=== PATIENT | female | born 1950 | race Caucasian/White ===

== ENCOUNTER 2018-05-30 09:15 | Observation (INO) ==
[2018-05-30] MEDS ORDERED: Tetanus/Diphtheria Toxoid Adult Vaccine Inj 0.5 ML Vial IM ONE (10:28)
[2018-05-30 10:47] LABS: Baso % (Auto) 0.3 % (0.0-2.0); Eos # (Auto) 0.5 th/mm3 (0.0-0.4); Hematocrit 29.7 % (35.0-46.0); Hemoglobin 9.6 gm/dL (11.6-15.3); Lymph # (Auto) 0.7 th/mm3 (1.0-4.8); Lymph % (Auto) 7.5 % (9.0-44.0); Mean Corpuscular HGB Conc 32.2 % (32.0-36.0); Mean Corpuscular Hemoglobin 24.1 pg (27.0-34.0); Mean Corpuscular Volume 74.9 fL (80.0-100.0); Mean Platelet Volume 8.8 fL (7.0-11.0); Mono # (Auto) 0.9 th/mm3 (0.0-0.9); Mono % (Auto) 9.4 % (0.0-8.0); Neut % (Auto) 77.8 % (16.0-70.0); Platelet Count 439 th/mm3 (150-450); Red Blood Count 3.96 mil/mm3 (4.00-5.30); Red Cell Distribution Width 15.5 % (11.6-17.2); White Blood Count 9.1 th/mm3 (4.0-11.0)
[2018-05-30] MEDS ORDERED: Vancomycin Inj 1 GM/200 ML PIGGYBACK IV.SIG SCH (11:00)
[2018-05-30] MEDS ORDERED: Vancomycin Inj 1,000 MG in Sodium Chlor 0.9% Inj 250 ML IV.SIG SCH (11:00)
[2018-05-30 11:05] LABS: Potassium 3.4 meq/L (3.5-5.1)
[2018-05-30 11:07] LABS: Calcium 8.6 mg/dL (8.5-10.1)
[2018-05-30 11:08] LABS: Carbon Dioxide 25.7 meq/L (21.0-32.0)
[2018-05-30 11:10] LABS: Platelet Estimate Normal (Normal); Platelet Morphology Normal (Normal)
--- NOTE | 2018-05-30 11:30 | ED ---
HPI General Chief complaint: Skin/Abscess/Foreign Body Stated complaint: Cellulitis both legs/antibiotics not working Time Seen by Provider: 05/30/18 10:13 Source: patient Mode of arrival: ambulatory Limitations: no limitations History of Present Illness HPI narrative: Patient is a 67-year-old female with history of lupus, fibromyalgia, osteopenia as well as osteoarthritis, presents to the emergency room for evaluation of cellulitis. Patient reports that she cellulitis to her lower extremities b/l. She did go to an urgent care on Wednesday and was started on Keflex 500mg qid. Reports that her cellulitis is getting worse instead of better. She is experiencing chills. Reports that she often gets cellulitis and requires IV antibiotics. Tetanus is not up to date. Related Data Home Medications Medication Instructions Recorded Confirmed amitriptyline 40 mg PO DAILY 05/30/18 05/30/18 cephalexin [Keflex] 500 mg PO QID 05/30/18 05/30/18 cyclobenzaprine 10 mg PO DAILY 05/30/18 05/30/18 diclofenac sodium 75 mg PO BID 05/30/18 05/30/18 duloxetine [Cymbalta] 60 mg PO DAILY 05/30/18 05/30/18 gabapentin 300 mg PO TID 05/30/18 05/30/18 hydroxychloroquine [Plaquenil] 200 mg PO BID 05/30/18 05/30/18 sertraline 100 mg PO DAILY 05/30/18 05/30/18 Allergies Allergy/AdvReac Type Severity Reaction Status Date / Time No Known Allergies Allergy Verified 05/30/18 09:42 Review of Systems ROS: all other systems reviewed are negative [facility] Medical History Medical History Fibromyalgia (Acute) Lupus (Acute) Osteoarthritis (Acute) Osteopenia (Acute) Surgical History Surgical History History of back surgery (Acute) History of carpal tunnel surgery (Acute) History of foot surgery (Acute) Hx of cholecystectomy (Acute) Total knee replacement status (Acute) Social History Social History Substance History: No History of Abuse Second Hand Smoke Exposure: No Smoking Status: Never smoker How Often Do You Have a Drink Containing Alcohol: Never Recent Travel in [facility] within the Last 8 Weeks: No Recent Out of Country Travel within the Last 8 Weeks: No Immunization History Tetanus Immunization: Unsure Hx Influenza Vaccine This Season: Yes Exam Narrative Exam Narrative: GENERAL: NAD SKIN: Focused skin assessment warm/dry. Patient with circumferential cellulitis to bilateral extremities from knee to ankle, patient with appropriate pulses, no neurovascular compromise HEAD: Atraumatic. Normocephalic. EYES: Pupils equal and round. No scleral icterus. No injection or drainage. ENT: No nasal bleeding or discharge. Mucous membranes pink and moist. NECK: Trachea midline. No JVD. CARDIOVASCULAR: Regular rate and rhythm. No murmur appreciated. RESPIRATORY: No accessory muscle use. Clear to auscultation. Breath sounds equal bilaterally. GASTROINTESTINAL: Abdomen soft, non-tender, nondistended. Hepatic and splenic margins not palpable. MUSCULOSKELETAL: No obvious deformities. No clubbing. No cyanosis. No edema. NEUROLOGICAL: Awake and alert. No obvious cranial nerve deficits. Motor grossly within normal limits. Normal speech. PSYCHIATRIC: Appropriate mood and affect; insight and judgment normal. Course Initial Documented Vital Signs Temperature 98.9 F 05/30/18 09:48 Pulse Rate 86 05/30/18 09:48 Respiratory Rate 18 05/30/18 09:48 Blood Pressure 164/74 H 05/30/18 09:48 Pulse Oximetry 97 05/30/18 09:48 Last Documented Vital Signs Temperature 98.9 F 05/30/18 09:48 Pulse Rate 77 05/30/18 13:18 Respiratory Rate 20 05/30/18 13:18 Blood Pressure 147/88 H 05/30/18 13:18 Pulse Oximetry 98 05/30/18 13:18 Medical Decision Making MDM Narrative Medical decision making narrative: During the course of the patients emergency department visit, the patients history, examination, and differential diagnosis were reviewed with the patient. The patient was placed on a surveillance monitor with oximetry and frequent blood pressure monitoring. The patient had an IV access obtained and blood work sent for analysis. The patient was initially provided IV vancomycin as well as tetanus update. wbc 9.1, hemoglobin 9.6, hematocrit 29.7, platelets 439 Sodium 139, potassium 3.4, BUN 10, creatinine 0.7, glucose 73 Patient with failed outpatient treatment for cellulitis, discussed with patient that I could add Bactrim in addition to Keflex for treatment of her cellulitis, if she fails this, she can return to the ER for admission. Patient does not want to be discharged due to this pain in her legs and "oral antibiotics never help me." Call made for admission case reviewed with dr. garcía who accepts pt to service Medical Screen Exam Complete: Yes Emergency Medical Condition: Yes Differential Diagnosis Differential Diagnosis: Cellulitis, bacteremia Medical Records Medical records reviewed: Yes I reviewed the patient's medical records. Lab Data Lab results reviewed: Yes I reviewed the patient's lab results. Result diagrams: 05/30/18 10:30 05/30/18 10:30 Lab Results 05/30/18 05/30/18 05/30/18 Range/Units 10:30 10:30 10:30 CBC w Diff Slide review pending WBC 9.1 (4.0-11.0) th/mm3 RBC 3.96 L (4.00-5.30) mil/mm3 Hgb 9.6 L (11.6-15.3) gm/dL Hct 29.7 L (35.0-46.0) % MCV 74.9 L (80.0-100.0) fL MCH 24.1 L (27.0-34.0) pg MCHC 32.2 (32.0-36.0) % RDW 15.5 (11.6-17.2) % Plt Count 439 (150-450) th/mm3 MPV 8.8 (7.0-11.0) fL Neut % (Auto) 77.8 H (16.0-70.0) % Lymph % (Auto) 7.5 L (9.0-44.0) % Pettis % (Auto) 9.4 H (0.0-8.0) % Eos % (Auto) 5.0 H (0.0-4.0) % Baso % (Auto) 0.3 (0.0-2.0) % Neut # (Auto) 7.0 (1.8-7.7) th/mm3 Lymph # (Auto) 0.7 L (1.0-4.8) th/mm3 Pettis # (Auto) 0.9 (0.0-0.9) th/mm3 Eos # (Auto) 0.5 H (0.0-0.4) th/mm3 Baso # (Auto) 0.0 (0.0-0.2) th/mm3 WBC Differential . Diff Scan Auto diff confirmed Differential Comment . Platelet Estimate Normal (Normal) Platelet Morphology Normal (Normal) Sodium 139 (136-145) meq/L Potassium 3.4 L (3.5-5.1) meq/L Chloride 106 (98-107) meq/L Carbon Dioxide 25.7 (21.0-32.0) meq/L Anion Gap 7 (5-15) meq/L BUN 10 (7-18) mg/dL Creatinine 0.71 (0.50-1.00) mg/dL Estimated GFR 82 L (>89) mL/min Random Glucose 93 (74-106) mg/dL Calcium 8.6 (8.5-10.1) mg/dL Magnesium 2.3 (1.5-2.5) mg/dL Discharge Plan Discharge Disposition Patient Disposition: 30 Still Patient Discharge Condition Condition: Stable Discharge Details Diagnosis: Cellulitis Physicians Team ED Provider: Tiffanie Torrez Primary Care Provider: Primary Care Elmira Esquivel Rxs /Orders / Referrals /Forms Prescriptions: No Action cyclobenzaprine 10 mg Tablet 10 mg PO DAILY RF: 0 sertraline 100 mg Tablet 100 mg PO DAILY RF: 0 amitriptyline 10 mg Tablet 40 mg PO DAILY RF: 0 cephalexin [Keflex] 500 mg Capsule 500 mg PO QID RF: 0 gabapentin 300 mg Capsule 300 mg PO TID RF: 0 diclofenac sodium 75 mg Tablet,Delayed Release (Dr/Ec) 75 mg PO BID RF: 0 hydroxychloroquine [Plaquenil] 200 mg Tablet 200 mg PO BID RF: 0 duloxetine [Cymbalta] 60 mg Capsule,Delayed Release(Dr/Ec) 60 mg PO DAILY RF: 0 Status ED Status: With Doctor
[2018-05-30] MEDS ORDERED: Bisacodyl 10 MG Supp RECTAL PRN (12:36)
[2018-05-30] MEDS ORDERED: Acetaminophen 325 MG Tablet PO PRN (12:36)
[2018-05-30] MEDS: Gabapentin 300 MG Capsule PO SCH ×2 (13:15→17:57)
[2018-05-30] MEDS ORDERED: Amitriptyline 10 MG Tablet PO SCH (14:00)
[2018-05-30] MEDS ORDERED: Vancomycin Consult Pharmacy OTHER PRN (15:15)
--- NOTE | 2018-05-30 15:18 | P.HP ---
History of Present Illness Primary Care Physician: No Primary Care Physician Chief Complaint: Bilateral lower extremity cellulitis History of Present Illness: This is a 67-year-old female with a history of lupus, fibromyalgia, osteoarthritis and osteopenia. She presents to the emergency department because of bilateral lower extremity cellulitis. Started about 10 days ago when she was vacationing in [place]. She developed swelling and burning sensation and later noted erythema worse on the left lower extremity. Denies fever, chills, leg pain and shortness of breath. She was prescribed Keflex 3 days ago when she was evaluated at urgent care center and reports that she is not any better actually worse. She has history of cellulitis that required IV antibiotics in the past. By the time I saw the patient, patient already received IV vancomycin. All other systems reviewed negative. Review of Systems All other systems reviewed negative except as stated in HPI PMFSH - History History Provided By: Patient - Medical History Medical History: Medical History (Last Reviewed 05/30/18 @ 15:20 by Jay Liu MD) Fibromyalgia Lupus Osteoarthritis Osteopenia - Surgical History Surgical History: Surgical History (Last Reviewed 05/30/18 @ 15:20 by Jay Liu MD) History of back surgery History of carpal tunnel surgery History of foot surgery Hx of cholecystectomy Total knee replacement status - Family History Family History: Family History (Last Updated 05/30/18 @ 15:20 by Jay Liu MD) Other No pertinent family history - Tobacco History Second Hand Smoke Exposure: No Smoking Status: Never smoker - Alcohol History How Often Do You Have a Drink Containing Alcohol: Never - Substance Use History Substance History: No History of Abuse - Travel History Recent Travel in the [place] Within the Last 8 Weeks: No Recent Travel Out of the Country Within the Last 8 Weeks: No - Immunization History Tetanus Immunization: Unsure Hx Influenza Vaccine This Season: Yes Medications and Allergies Active Medications: Active Medications Acetaminophen (Tylenol) 650 mg PO Q4H PRN PRN Reason: Temp > 100.4 Al Hydroxide/Mg Hydroxide (Milk Of Magnesia Liq) 30 ml PO Q12H PRN PRN Reason: Mild Constipation Bisacodyl (Dulcolax Supp) 10 mg RECTAL DAILY PRN PRN Reason: SEVERE CONSITIPATION Cyclobenzaprine HCl (Flexeril) 10 mg PO HS [facility] Diclofenac Sodium (Voltaren Dr) 75 mg PO BID [facility] Last Admin: 05/30/18 13:56 Dose: 75 mg Duloxetine HCl (Cymbalta) 60 mg PO DAILY [facility] Gabapentin (Neurontin) 300 mg PO TID [facility] Last Admin: 05/30/18 13:15 Dose: 300 mg Hydroxychloroquine Sulfate (Plaquenil) 200 mg PO BID [facility] Vancomycin HCl 1,000 mg/ (Sodium Chloride) 250 mls @ 200 mls/hr IV.SIG CRM ADMINISTRATOR [facility] Last Infusion: 05/30/18 12:14 Dose: Infused Lactulose (Lactulose Liq) 30 ml PO DAILY PRN PRN Reason: SEVERE CONSITIPATION Ondansetron HCl (Zofran Inj) 4 mg IV.PUSH Q6H PRN PRN Reason: NAUSEA OR VOMITING Pharmacy Profile Note (Vancomycin Consult Pharmacy) 1 each OTHER UNSCH PRN PRN Reason: Pharmacy to dose Senna/Docusate Sodium (Joan-Colace) 1 tab PO BID [facility] Sennosides (Senokot) 17.2 mg PO Q12H PRN PRN Reason: Moderate Constipation Sertraline HCl (Zoloft) 100 mg PO DAILY [facility] Sodium Chloride (Ns Flush) 2 ml IV.FLUSH PRN PRN PRN Reason: FLUSH AFTER USING IV ACCESS Allergies Allergy/AdvReac Type Severity Reaction Status Date / Time No Known Allergies Allergy Verified 05/30/18 09:42 Home Medications Medication Instructions Recorded Confirmed Type cephalexin [Keflex] 500 mg PO QID 05/30/18 05/30/18 History cyclobenzaprine 10 mg PO HS 05/30/18 05/30/18 History diclofenac sodium 75 mg PO BID 05/30/18 05/30/18 History duloxetine [Cymbalta] 60 mg PO DAILY 05/30/18 05/30/18 History gabapentin 300 mg PO TID 05/30/18 05/30/18 History hydroxychloroquine [Plaquenil] 200 mg PO BID 05/30/18 05/30/18 History sertraline 100 mg PO DAILY 05/30/18 05/30/18 History Exam Vital signs: Vital Signs 05/30/18 09:48 05/30/18 11:04 05/30/18 13:18 Temperature 98.9 F Pulse Rate 86 78 77 Respiratory Rate 18 18 20 Blood Pressure 164/74 H 144/69 H 147/88 H Pulse Oximetry 97 95 98 05/30/18 14:48 Temperature Pulse Rate 65 Respiratory Rate 20 Blood Pressure 142/67 H Pulse Oximetry 99 Intake & Output 05/29/18 05/30/18 05/30/18 18:59 06:59 18:59 Intake Total 370 / 370 Balance 370 / 370 Weight 89.4 kg Intake: IV 250 / 250 Vancomycin Inj 1,000 MG In NS 250 / 250 Inj 250 ML @ 200 mls/hr IV.SIG CRM ADMINISTRATOR [facility] Rx#:[id number] Oral 120 / 120 Other: # Voids 1 Narrative: GENERAL: Well-developed, well-nourished in no distress SKIN: Warm and dry. She has cellulitis involving bilateral lower extremities with pitting edema, warmth, tenderness and erythema worse on the left lower extremity which is involving the entire left leg. On the right leg erythema is noted on the mid half HEAD: Atraumatic. Normocephalic. EYES: Pupils equal and round. No scleral icterus. No injection or drainage. ENT: No nasal bleeding or discharge. Mucous membranes pink and moist. NECK: Trachea midline. No JVD. CARDIOVASCULAR: Regular rate and rhythm. RESPIRATORY: No accessory muscle use. Clear to auscultation. Breath sounds equal bilaterally. GASTROINTESTINAL: Abdomen soft, non-tender, nondistended. MUSCULOSKELETAL: Extremities without clubbing, cyanosis. No obvious deformities. NEUROLOGICAL: Awake and alert. No obvious cranial nerve deficits. Motor grossly within normal limits. Five out of 5 muscle strength in the arms and legs. Normal speech. PSYCHIATRIC: Appropriate mood and affect; insight and judgment normal. Results - Labs CBC & Chem 7: 05/30/18 10:30 05/30/18 10:30 Labs: Laboratory Results - last 24 hr 05/30/18 05/30/18 05/30/18 10:30 10:30 10:30 CBC w Diff Slide review pending WBC 9.1 RBC 3.96 L Hgb 9.6 L Hct 29.7 L MCV 74.9 L MCH 24.1 L MCHC 32.2 RDW 15.5 Plt Count 439 MPV 8.8 Neut % (Auto) 77.8 H Lymph % (Auto) 7.5 L Benson % (Auto) 9.4 H Eos % (Auto) 5.0 H Baso % (Auto) 0.3 Neut # (Auto) 7.0 Lymph # (Auto) 0.7 L Benson # (Auto) 0.9 Eos # (Auto) 0.5 H Baso # (Auto) 0.0 WBC Differential . Diff Scan Auto diff confirmed Differential Comment . Platelet Estimate Normal Platelet Morphology Normal Sodium 139 Potassium 3.4 L Chloride 106 Carbon Dioxide 25.7 Anion Gap 7 BUN 10 Creatinine 0.71 Estimated GFR 82 L Random Glucose 93 Calcium 8.6 Magnesium 2.3 Caprini VTE Risk Assessment Caprini VTE Risk Assessment: Moderate/High Risk (score >= 2) Caprini Risk Assessment Model: Point Value = 1 Point Value = 2 Point Value = 3 Point Value = 5 Age 41-60 Minor surgery BMI > 25 kg/m2 Swollen legs Varicose veins or History of unexplained or recurrent spontaneous Oral contraceptives or hormone replacement Sepsis (< 1 month) Serious lung disease, including pneumonia (< 1 month) Abnormal pulmonary function Acute myocardial infarction Congestive heart failure (< 1 month) History of inflammatory bowel disease Medical patient at bed rest Age 61-74 Arthroscopic surgery Major open surgery (> 45 min) Laparoscopic surgery (> 45 min) Malignancy Confined to bed (> 72 hours) Immobilizing plaster cast Central venous access Age >= 75 History of VTE Family history of VTE Factor V Leiden Prothrombin [id number] Lupus anticoagulant Anticardiolipin antibodies Elevated serum homocysteine Heparin-induced thrombocytopenia Other congenital or acquired thrombophilia Stroke (< 1 month) Elective arthroplasty Hip, pelvis, or leg fracture Acute spinal cord injury (< 1 month) Prophylaxis Regimen: Total Risk Factor Score Risk Level Prophylaxis Regimen 0-1 Low Early ambulation 2 Moderate Order ONE of the following: *Sequential Compression Device (SCD) *Heparin 5000 units SQ BID 3-4 Higher Order ONE of the following medications: *Heparin 5000 units SQ TID *Enoxaparin/Lovenox 40 mg SQ daily (WT < 150 kg, CrCl > 30 mL/min) *Enoxaparin/Lovenox 30 mg SQ daily (WT < 150 kg, CrCl > 10-29 mL/min) *Enoxaparin/Lovenox 30 mg SQ BID (WT < 150 kg, CrCl > 30 mL/min) AND/OR *Sequential Compression Device (SCD) 5 or more Highest Order ONE of the following medications: *Heparin 5000 units SQ TID (Preferred with Epidurals) *Enoxaparin/Lovenox 40 mg SQ daily (WT < 150 kg, CrCl > 30 mL/min) *Enoxaparin/Lovenox 30 mg SQ daily (WT < 150 kg, CrCl > 10-29 mL/min) *Enoxaparin/Lovenox 30 mg SQ BID (WT < 150 kg, CrCl > 30 mL/min) AND *Sequential Compression Device (SCD) Assessment and Plan - Plan This is a 67-year-old female with a history of lupus, fibromyalgia, osteoarthritis and osteopenia. She presents with worsening bilateral lower extremity cellulitis despite on Keflex for the past 3 days. Bilateral lower extremity cellulitis worse on the left with failed outpatient therapy. Continue IV vancomycin. Edema control leg elevation and monitor for response. Hypokalemia. Patient received 30 mg p.o. potassium. Magnesium is 2.3. Repeat BMP and magnesium in the morning Microcytic anemia. Hemodynamically stable. No gross bleeding. Check Hemoccult and repeat CBC in the morning including iron studies DVT prophylaxis with early ambulation. Unable to start mechanical devices secondary to cellulitis. Start pharmacological prophylaxis if stable anemia and guaiac negative
[2018-05-30] MEDS: Senna/Docusate Sodium 8.6/50 MG Tablet PO SCH (21:02)
[2018-05-30] MEDS: Hydroxychloroquine 200 MG Tablet PO SCH (21:02)
[2018-05-30] MEDS ORDERED: Zolpidem Tartrate 5 MG Tablet PO ONE (22:00)
[2018-05-30] MEDS: Vancomycin Inj 1,500 MG in Sodium Chlor 0.9% Inj 500 ML IV.SIG SCH (23:26)
[2018-05-31 06:06] LABS: Baso % (Auto) 0.4 % (0.0-2.0); Eos # (Auto) 0.5 th/mm3 (0.0-0.4); Eos % (Auto) 8.2 % (0.0-4.0); Hematocrit 26.4 % (35.0-46.0); Hemoglobin 8.3 gm/dL (11.6-15.3); Lymph # (Auto) 0.8 th/mm3 (1.0-4.8); Lymph % (Auto) 13.7 % (9.0-44.0); Mean Corpuscular HGB Conc 31.5 % (32.0-36.0); Mean Corpuscular Hemoglobin 24.1 pg (27.0-34.0); Mean Corpuscular Volume 76.3 fL (80.0-100.0); Mean Platelet Volume 8.1 fL (7.0-11.0); Mono # (Auto) 0.9 th/mm3 (0.0-0.9); Mono % (Auto) 15.4 % (0.0-8.0); Neut % (Auto) 62.3 % (16.0-70.0); Platelet Count 347 th/mm3 (150-450); Red Blood Count 3.46 mil/mm3 (4.00-5.30); Red Cell Distribution Width 15.3 % (11.6-17.2); White Blood Count 6.2 th/mm3 (4.0-11.0)
[2018-05-31 06:18] LABS: Chloride 109 meq/L (98-107); Potassium 3.8 meq/L (3.5-5.1); Sodium 141 meq/L (136-145)
[2018-05-31 06:21] LABS: Anion Gap 6 meq/L (5-15); Calcium 8.2 mg/dL (8.5-10.1); Carbon Dioxide 26.2 meq/L (21.0-32.0); Glucose,Random 82 mg/dL (74-106)
[2018-05-31 06:22] LABS: Blood Urea Nitrogen 8 mg/dL (7-18)
[2018-05-31 06:25] LABS: Glomerular Filtration Rate Greater Than 89 mL/min (>89); Ovalocytes 1+; Platelet Estimate Normal (Normal); Platelet Morphology Normal (Normal)
--- NOTE | 2018-05-31 08:33 | US ---
EXAM DATE: 05/31/2018 8:22 AM EDT AGE/SEX: 67 years / Female INDICATIONS: Redness and swelling. CLINICAL DATA: This is the patient's initial encounter. Patient reports that signs and symptoms have been present for 1 day and indicates a pain score of 2/10. MEDICAL/SURGICAL HISTORY: . Fibromyalgia. Lupus. Osteoarthritis. Osteopenia. Carpal tunnel syn drome. Cholecystectomy. Back surgery. Foot surgery. Left total knee replacement. COMPARISON: No prior exams available for comparison. TECHNIQUE: Venous ultrasound of both lower extremities was performed from the inguinal ligament to t he proximal calf. Real-time, color Doppler and spectral tracing, compression and augmentation techni ques were used. FINDINGS: Right Leg: Normal compression of the deep venous system from the inguinal region to the proximal enmanuel f. No echogenic clot is seen. Normal response of the venous system to augmentation and respiration. Left Leg: Normal compression of the deep venous system from the inguinal region to the proximal calf . No echogenic clot is seen. Normal response of the venous system to augmentation and respiration. Other: None. CONCLUSION: 1. No evidence of DVT. Electronically signed by: Rey Santos MD 05/31/2018 8:31 AM EDT
--- NOTE | 2018-05-31 08:43 | P.PN ---
Subjective Interval history: Follow-up cellulitis. No new complaints. Doppler sonogram negative for DVT. Hemoglobin further dropped to 8.3 no gross bleeding. Colonoscopy unremarkable 5 months ago. Physical Exam Vital signs: Vital Signs 05/30/18 09:48 05/30/18 11:04 05/30/18 13:18 Temperature 98.9 F Pulse Rate 86 78 77 Respiratory Rate 18 18 20 Blood Pressure 164/74 H 144/69 H 147/88 H Pulse Oximetry 97 95 98 05/30/18 14:48 05/30/18 15:35 05/30/18 16:00 Temperature 98.0 F Pulse Rate 65 73 Respiratory Rate 20 20 Blood Pressure 142/67 H 143/77 H Pulse Oximetry 99 99 99 05/30/18 20:00 05/31/18 00:00 05/31/18 08:00 Temperature 98.8 F 98.1 F 97.1 F L Pulse Rate 75 66 67 Respiratory Rate 18 18 20 Blood Pressure 147/64 H 127/60 146/67 H Pulse Oximetry 98 18 L 99 Intake & Output 05/30/18 05/31/18 05/31/18 18:59 06:59 18:59 Intake Total 370 / 370 480 / 480 755 / 755 Balance 370 / 370 480 / 480 755 / 755 Weight 89.4 kg 91.5 kg Intake: IV 250 / 250 515 / 515 Vancomycin Inj 1,000 MG In NS 250 / 250 Inj 250 ML @ 200 mls/hr IV.SIG SLIMER [facility] Rx#:[id number] Vancomycin Inj 1,500 MG In NS 515 / 515 Inj 500 ML @ 250 mls/hr IV.SIG Q18H [facility] Rx#:[id number] Oral 120 / 120 480 / 480 240 / 240 Other: # Voids 1 3 Date of Last Bowel Movement 05/29/18 Weight On Admission 89.4 kg Narrative: GENERAL: Well-developed, well-nourished in no distress SKIN: Warm and dry. Improving cellulitis (receding erythema from borders) involving bilateral lower extremities with pitting edema, warmth, tenderness and erythema worse on the left lower extremity CARDIOVASCULAR: Regular rate and rhythm. RESPIRATORY: No accessory muscle use. Clear to auscultation. Breath sounds equal bilaterally. GASTROINTESTINAL: Abdomen soft, non-tender, nondistended. MUSCULOSKELETAL: Extremities without clubbing, cyanosis. No obvious deformities. NEUROLOGICAL: Awake and alert. No obvious cranial nerve deficits. Motor grossly within normal limits. Five out of 5 muscle strength in the arms and legs. Normal speech. PSYCHIATRIC: Appropriate mood and affect; insight and judgment normal. Results - Labs CBC & Chem 7: 05/31/18 05:40 05/31/18 05:40 Laboratory Results - last 24 hr 05/30/18 05/30/18 05/30/18 10:30 10:30 10:30 CBC w Diff Slide review pending WBC 9.1 RBC 3.96 L Hgb 9.6 L Hct 29.7 L MCV 74.9 L MCH 24.1 L MCHC 32.2 RDW 15.5 Plt Count 439 MPV 8.8 Neut % (Auto) 77.8 H Lymph % (Auto) 7.5 L Winston % (Auto) 9.4 H Eos % (Auto) 5.0 H Baso % (Auto) 0.3 Neut # (Auto) 7.0 Lymph # (Auto) 0.7 L Winston # (Auto) 0.9 Eos # (Auto) 0.5 H Baso # (Auto) 0.0 WBC Differential . Diff Scan Auto diff confirmed Differential Comment . Platelet Estimate Normal Platelet Morphology Normal Ovalocytes Sodium 139 Potassium 3.4 L Chloride 106 Carbon Dioxide 25.7 Anion Gap 7 BUN 10 Creatinine 0.71 Estimated GFR 82 L Random Glucose 93 Calcium 8.6 Magnesium 2.3 05/31/18 05/31/18 05:40 05:40 CBC w Diff Slide review pending WBC 6.2 RBC 3.46 L Hgb 8.3 L Hct 26.4 L MCV 76.3 L MCH 24.1 L MCHC 31.5 L RDW 15.3 Plt Count 347 MPV 8.1 Neut % (Auto) 62.3 Lymph % (Auto) 13.7 Winston % (Auto) 15.4 H Eos % (Auto) 8.2 H Baso % (Auto) 0.4 Neut # (Auto) 4.0 Lymph # (Auto) 0.8 L Winston # (Auto) 0.9 Eos # (Auto) 0.5 H Baso # (Auto) 0.0 WBC Differential . Diff Scan Auto diff confirmed Differential Comment . Platelet Estimate Normal Platelet Morphology Normal Ovalocytes 1+ H Sodium 141 Potassium 3.8 Chloride 109 H Carbon Dioxide 26.2 Anion Gap 6 BUN 8 Creatinine 0.60 Estimated GFR Greater than 89 Random Glucose 82 Calcium 8.2 L Magnesium - Imaging Impressions Venous Doppler Study 05/31/18 00:00 CONCLUSION: 1. No evidence of DVT. - Procedures none Assessment and Plan - Plan This is a 67-year-old female with a history of lupus, fibromyalgia, osteoarthritis and osteopenia. She presents with worsening bilateral lower extremity cellulitis despite on Keflex for the past 3 days. Bilateral lower extremity cellulitis worse on the left with failed outpatient therapy. Improving continue IV vancomycin. Edema control leg elevation and monitor for response. Hypokalemia. Improved Microcytic anemia. Hemodynamically stable. No gross bleeding. Check Hemoccult and repeat CBC in the morning including iron studies. Negative colonoscopy 5 months ago DVT prophylaxis with early ambulation. Unable to start mechanical devices secondary to cellulitis. Start pharmacological prophylaxis if stable anemia and guaiac negative Discharge Planning: Possible discharge in the morning
[2018-05-31] MEDS: Hydroxychloroquine 200 MG Tablet PO SCH ×2 (08:57→21:02)
[2018-05-31] MEDS: Gabapentin 300 MG Capsule PO SCH ×4 (08:57→17:25)
[2018-05-31] MEDS: Duloxetine 60 MG DR Capsule PO SCH (08:57)
[2018-05-31] MEDS: Sertraline 100 MG Tablet PO SCH (08:59)
[2018-05-31] MEDS: Senna/Docusate Sodium 8.6/50 MG Tablet PO SCH ×2 (09:00→21:03)
[2018-05-31] MEDS ORDERED: Acetaminophen 325 MG Tablet PO PRN (09:59)
[2018-05-31] MEDS ORDERED: Naloxone Inj 0.4 MG/ML Vial IV.PUSH PRN (09:59)
[2018-05-31 10:37] LABS: Iron 19 mcg/dL (50-170); Total Iron Binding Capacity 377 mcg/dL (250-450)
[2018-05-31 10:39] LABS: Ferritin 14 ng/mL (8-252)
[2018-05-31] MEDS: Vancomycin Inj 1,500 MG in Sodium Chlor 0.9% Inj 500 ML IV.SIG SCH (16:50)
[2018-05-31] MEDS: Amitriptyline 10 MG Tablet PO SCH (21:02)
[2018-06-01 07:29] LABS: Baso % (Auto) 0.4 % (0.0-2.0); Eos # (Auto) 0.5 th/mm3 (0.0-0.4); Eos % (Auto) 8.3 % (0.0-4.0); Hemoglobin 8.5 gm/dL (11.6-15.3); Lymph # (Auto) 0.9 th/mm3 (1.0-4.8); Lymph % (Auto) 15.6 % (9.0-44.0); Mean Corpuscular Hemoglobin 23.1 pg (27.0-34.0); Mean Corpuscular Volume 75.8 fL (80.0-100.0); Mean Platelet Volume 8.1 fL (7.0-11.0); Mono # (Auto) 0.8 th/mm3 (0.0-0.9); Mono % (Auto) 14.6 % (0.0-8.0); Neut # (Auto) 3.5 th/mm3 (1.8-7.7); Neut % (Auto) 61.1 % (16.0-70.0); Platelet Count 385 th/mm3 (150-450); Red Blood Count 3.69 mil/mm3 (4.00-5.30); White Blood Count 5.7 th/mm3 (4.0-11.0)
[2018-06-01 07:41] LABS: Mean Corpuscular HGB Conc 30.5 % (32.0-36.0)
[2018-06-01 08:11] LABS: Ovalocytes 1+; Platelet Estimate Normal (Normal); Platelet Morphology Normal (Normal); Rouleaux Present
[2018-06-01] MEDS: Hydroxychloroquine 200 MG Tablet PO SCH ×2 (08:41→20:26)
[2018-06-01] MEDS: Duloxetine 60 MG DR Capsule PO SCH (08:41)
[2018-06-01] MEDS: Sertraline 100 MG Tablet PO SCH (08:41)
[2018-06-01] MEDS: Gabapentin 300 MG Capsule PO SCH ×3 (08:41→17:13)
[2018-06-01] MEDS: Senna/Docusate Sodium 8.6/50 MG Tablet PO SCH ×2 (08:41→20:26)
[2018-06-01] MEDS: Vancomycin Inj 1,500 MG in Sodium Chlor 0.9% Inj 500 ML IV.SIG SCH (10:04)
[2018-06-01] MEDS ORDERED: Ferrous Sulfate 325 MG Tablet PO ONE (11:08)
--- NOTE | 2018-06-01 11:08 | P.PNIM ---
Subjective Interval history: Overall there has been improvement since time of admit. However patient still complains of redness and burning. She is apprehensive about discontinuing IV treatments given her history of poor response to p.o. therapies and recent failure of outpatient p.o. Keflex. Physical Exam Vital signs: Vital Signs 05/31/18 11:56 05/31/18 16:00 05/31/18 20:00 Temperature 98.1 F 96.3 F L 97.1 F L Pulse Rate 78 74 Respiratory Rate 20 16 Blood Pressure 149/76 H 125/58 L 178/72 H Pulse Oximetry 94 L 98 100 06/01/18 00:00 06/01/18 08:00 Temperature 96.2 F L 97.6 F Pulse Rate 71 74 Respiratory Rate 16 20 Blood Pressure 118/56 L 144/65 H Pulse Oximetry 93 L 100 Intake & Output 05/31/18 06/01/18 06/01/18 18:59 06:59 18:59 Intake Total 755 / 755 715 / 715 240 / 240 Output Total 200 / 200 Balance 755 / 755 715 / 715 40 / 40 Weight 91.5 kg Intake: IV 515 / 515 515 / 515 Vancomycin Inj 1,500 MG In NS 515 / 515 515 / 515 Inj 500 ML @ 250 mls/hr IV.SIG Q18H JEF Rx#:[id number] Oral 240 / 240 200 / 200 240 / 240 Output: Urine 200 / 200 Narrative: GENERAL: NAD, A&Ox3 HEAD: Normocephalic. NECK: Supple, trachea midline. No lymphadenopathy. EYES: No scleral icterus. No injection or drainage. CARDIOVASCULAR: Regular rate and rhythm without murmurs, gallops, or rubs. RESPIRATORY: Breath sounds equal bilaterally. No accessory muscle use. GASTROINTESTINAL: Abdomen soft, non-tender, nondistended. MUSCULOSKELETAL: No cyanosis, or edema. SKIN: Warm and dry. Improving erythema and induration at bilateral lower extremities, left larger than right. NEURO: No focal neurological deficits. Results - Labs CBC & Chem 7: 06/01/18 07:10 05/31/18 05:40 Laboratory Results - last 24 hr 06/01/18 07:10 CBC w Diff Slide review pending WBC 5.7 RBC 3.69 L Hgb 8.5 L Hct 28.0 L MCV 75.8 L MCH 23.1 L MCHC 30.5 L RDW 15.0 Plt Count 385 MPV 8.1 Neut % (Auto) 61.1 Lymph % (Auto) 15.6 [place] % (Auto) 14.6 H Eos % (Auto) 8.3 H Baso % (Auto) 0.4 Neut # (Auto) 3.5 Lymph # (Auto) 0.9 L [place] # (Auto) 0.8 Eos # (Auto) 0.5 H Baso # (Auto) 0.0 WBC Differential . Diff Scan Auto diff confirmed Differential Comment . Platelet Estimate Normal Platelet Morphology Normal Ovalocytes 1+ H Rouleaux Present H Microbiology 05/30/18 10:30 Blood - Peripheral Aerobic Blood Culture - Preliminary No growth in 2 days 05/30/18 10:30 Blood - Peripheral Anaerobic Blood Culture - Preliminary No growth in 2 days 05/30/18 10:40 Blood - Peripheral Aerobic Blood Culture - Preliminary No growth in 2 days 05/30/18 10:40 Blood - Peripheral Anaerobic Blood Culture - Preliminary No growth in 2 days - Procedures none Assessment and Plan - Plan This is a 67-year-old female with a history of lupus, fibromyalgia, osteoarthritis and osteopenia. Admitted secondary to bilateral lower extremity cellulitis with outpatient treatment failure on Keflex. Bilateral lower extremity cellulitis Outpatient treatment failure Patient failed Keflex Improving on IV vancomycin. Transition to p.o. clindamycin and p.o. Bactrim Monitor for continuation of improvement Hypokalemia. Improved Monitor for recurrence Microcytic anemia Iron Deficiency Continue to monitor as an outpatient Iron supplement Lupus Continue baseline treatment DVT prophylaxis Continue ambulating Discharge planning If patient continues to have response despite transition to p.o. treatment will consider discharge tomorrow morning if patient fails transition to p.o. treatment will consider IV outpatient antibiotics.
[2018-06-01] MEDS: Lactobacillus Acidophilus/L. Spores Tablet PO SCH ×2 (12:10→17:13)
[2018-06-01 20:10] VITALS: RESP 16
[2018-06-01] MEDS: Amitriptyline 10 MG Tablet PO SCH (20:26)
[2018-06-02] MEDS ORDERED: VANCOMYCIN TROUGH OTHER ONE (04:45)
[2018-06-02] MEDS ORDERED: Ferrous Sulfate 325 MG Tablet PO SCH (09:00)
[2018-06-02 09:05] VITALS: BP 146/67; PULSE 73; TEMP 96.9; O2SAT 100
[2018-06-02] MEDS: Duloxetine 60 MG DR Capsule PO SCH (09:35)
[2018-06-02] MEDS: Lactobacillus Acidophilus/L. Spores Tablet PO SCH (09:35)
[2018-06-02] MEDS: Gabapentin 300 MG Capsule PO SCH (09:35)
[2018-06-02] MEDS: Sertraline 100 MG Tablet PO SCH (09:36)
[2018-06-02] MEDS: Hydroxychloroquine 200 MG Tablet PO SCH (09:36)
[2018-06-02] MEDS: Senna/Docusate Sodium 8.6/50 MG Tablet PO SCH (09:36)
--- NOTE | 2018-06-02 10:56 | P.DS ---
Date of admission: 05/30/18 13:42 Primary care physician: No Primary Care Physician Brief History from admission: This is a 67-year-old female with a history of lupus, fibromyalgia, osteoarthritis and osteopenia. She presents to the emergency department because of bilateral lower extremity cellulitis. Started about 10 days ago when she was vacationing in [place]. She developed swelling and burning sensation and later noted erythema worse on the left lower extremity. Denies fever, chills, leg pain and shortness of breath. She was prescribed Keflex 3 days ago when she was evaluated at urgent care center and reports that she is not any better actually worse. She has history of cellulitis that required IV antibiotics in the past. By the time I saw the patient, patient already received IV vancomycin. All other systems reviewed negative. DS: Medications - Discharge Medications Prescriptions: acidophilus-sporogenes [Acidophilus Ex Str (L. sporog)] 1 tab PO TID #30 tab clindamycin HCl [Cleocin HCl] 300 mg PO Q6HR #28 cap ferrous sulfate [FeroSul] 325 mg PO DAILY #30 tab sulfamethoxazole-trimethoprim 1 tab PO Q12HR #14 tab DS: Summary Hospital Course: Mrs. Martinez is a 67-year-old female. She was admitted secondary to bilateral lower extremity cellulitis which was more prominent on the left. This was in the setting of outpatient treatment failure, she had previously been treated with Keflex. Vancomycin was used as an IV treatment and patient had improvement on this. Due to a previous history of outpatient treatment failure on Keflex and the past history of poor outcomes with other oral agents, patient was transitioned to Bactrim and clindamycin and monitored for the last 24 hours on this treatment. With these treatments she continues to have a downward trend in her white blood cell count and neutrophil count. The bilateral lower extremities continue to show improvement on oral treatment. Patient is medically stable and cleared for discharge on Bactrim and clindamycin with probiotics. - Time Spent with Patient Total time spent providing and/or coordinating discharge services: Less than 30 minutes - Quality: VTE Deep Vein Thrombosis/Pulmonary Embolism Present on Admission: No Exam Vital signs: Vital Signs 06/01/18 12:00 06/01/18 16:00 06/01/18 20:00 Temperature 98.4 F 97.2 F L 98.2 F Pulse Rate 70 88 73 Respiratory Rate 20 20 16 Blood Pressure 137/63 136/65 144/67 H Pulse Oximetry 137 H 97 100 06/02/18 00:00 06/02/18 08:00 Temperature 97.0 F L 96.9 F L Pulse Rate 74 73 Respiratory Rate 16 16 Blood Pressure 123/60 146/67 H Pulse Oximetry 96 100 Intake & Output 06/01/18 06/02/18 06/02/18 18:59 06:59 18:59 Intake Total 995 / 995 200 / 200 Output Total 400 / 400 Balance 595 / 595 200 / 200 Weight 91.5 kg Intake: IV 515 / 515 Vancomycin Inj 1,500 MG In NS 515 / 515 Inj 500 ML @ 250 mls/hr IV.SIG Q18H JEF Rx#:[id number] Oral 480 / 480 200 / 200 Output: Urine 400 / 400 Other: # Voids 3 Date of Last Bowel Movement 05/29/18 # Bowel Movements 0 Results Procedures completed during hospitalization: none Labs on day of discharge: Labs from last 24 hours 06/02/18 06/02/18 05:06 05:06 Creatinine 0.71 Estimated GFR 82 L Vancomycin Trough 17.1 H Preliminary micro results at discharge 05/30/18 10:30 Aerobic Blood Culture - Preliminary Blood - Peripheral No growth in 2 days Anaerobic Blood Culture - Preliminary No growth in 2 days 05/30/18 10:40 Aerobic Blood Culture - Preliminary Blood - Peripheral No growth in 2 days Anaerobic Blood Culture - Preliminary No growth in 2 days - Impressions ITS Impressions Venous Doppler Study 05/31/18 00:00 CONCLUSION: 1. No evidence of DVT. Discharge Plan - Discharge Disposition Patient Disposition: 01 Discharge Home - Discharge Condition Condition: Stable - Discharge Order Discharge Orders: Discharge Order (Routine); Ordered 06/02/18 Ordered By: Slava Ohara - Discharge Details Anticipated Discharge Date: 06/02/18 - Physicians Team Primary Care Provider: [facility] [place] Attending Provider: Slava Ohara
== END 2018-06-02 10:30 | disposition home or self-care (01) ==
LOC: PHEDA 09:15 → PHED 09:15 → PHEDA 15:39 → PH3 15:41
PROVIDERS: ADMIT Hospitalist; ATTEND Hospitalist
DX: Z90.49 Acquired absence of other specified parts of digestive tract; E87.6 Hypokalemia; M19.90 Unspecified osteoarthritis, unspecified site; M79.7 Fibromyalgia; M85.80 Other specified disorders of bone density and structure, unspecified site; L03.116 Cellulitis of left lower limb; Z96.659 Presence of unspecified artificial knee joint; L03.115 Cellulitis of right lower limb; R60.0 Localized edema; D50.9 Iron deficiency anemia, unspecified